=== PATIENT | female | born 1965 | race Caucasian/White ===

== ENCOUNTER 2017-02-27 09:50 | Day surgery (SDC) | payer OTHER ==
[~2017-02-27] VITALS: Ht 154.9 cm; Wt 52.0 kg
[2017-02-27] MEDS ORDERED: ASPIRIN325 MG PO (10:00)
== END 2017-02-27 16:07 | disposition home or self-care (01) ==
LOC: CATH 09:50
DX: R00.2 Palpitations (principal); R07.9 Chest pain, unspecified; Z82.49 Family history of ischemic heart disease and other diseases of the circulatory system; R06.02 Shortness of breath; R94.31 Abnormal electrocardiogram [ECG] [EKG]
CPT/HCPCS: C1769; C1887; J1644; J2250; J2405; J3010